=== PATIENT | male | born 1995 | race Caucasian/White ===

== ENCOUNTER 2024-03-09 13:41 | Emergency (ER) | payer BC, SELFPAY ==
[2024-03-09 13:44] VITALS: BP 121/73; BMI 45.1
[2024-03-09 14:00] LABS: Urine Albumin Negative (Neg - Trace); Urine Bilirubin Negative (Negative); Urine Character Clear (Clear); Urine Color Yellow; Urine Glucose Negative (Negative); Urine Ketone Negative (Negative); Urine Leukocyte Negative (Negative); Urine Nitrite Negative (Negative); Urine Occult Blood Negative (Negative); Urine Urobilinogen Negative (Neg - 1+)
[2024-03-09 15:59] VITALS: BP 134/74
[2024-03-09 16:04] LABS: % Basophils 0.4 % (0-2); % Eosinophils 2.6 % (0-6); % Immature Granulocytes 0.4 % (0-0.5); % Lymphocytes 21.2 % (20.5-51.1); % Monocytes 12.8 % (1.7-9.3); % Neutrophils 62.6 % (42.2-75.2); Absolute Eosinophils 0.1 10^3/uL (0-0.7); Absolute Lymphocytes 0.6 10^3/uL (1.2-3.4); Absolute Monocytes 0.4 10^3/uL (0.1-0.6); Absolute Neutrophils 1.7 10^3/uL (1.4-6.5); Hematocrit 40.2 % (39.0-52.0); Hemoglobin 14.4 g/dL (13.0-18.0); Mean Corp Hgb Conc. 35.8 g/dL (33.0-37.0); Mean Corpuscular Hgb 30.3 pg (27.0-31.0); Mean Corpuscular Volume 84.5 fL (80.0-94.0); Mean Platelet Volume 9.4 fL (7.4-10.4); Nucleated Red Blood Cells % 0 % (-); Platelet Count 168 10^3/uL (130-400); Red Blood Cell Count 4.76 10^6/uL (4.70-6.10); Red Cell Dist. Width 12.2 % (11.5-14.5); White Blood Cell Count 2.7 10^3/uL (4.8-10.8)
[2024-03-09] MEDS: NSS 1000 IV (16:24)
[2024-03-09 16:43] LABS: ALT (SGPT) 64 U/L (0-50); AST (SGOT) 37 U/L (17-59); Albumin 4.3 g/dl (3.5-5.0); Alkaline Phosphatase 66 U/L (38-126); Blood Urea Nitrogen 13 mg/dl (9-20); Calcium 9.1 mg/dl (8.4-10.2); Carbon Dioxide 27 mmol/L (22-30); Chloride 103 mmol/L (98-107); Estimated Creatinine Clearance > 125 ml/min; Glucose 89 mg/dl (70-99); Lipase 46 U/L (23-300); Potassium 4.5 mmol/L (3.5-5.1); Sodium 137 mmol/L (135-145); Total Bilirubin 0.5 mg/dl (0.2-1.3); Total Protein 6.6 g/dl (6.3-8.2); eGFR > 60.00
--- NOTE | 2024-03-09 16:51 | ED.GENMED ---
History of Present Illness
General
Chief Complaint: Dehydration Symptoms
Time Seen by Provider: 03/09/24 15:59
History of Present Illness
History of Present Illness:
28-year-old male without significant past medical history presenting for concern of dehydration. Patient reports that he works in [employer], which is very hot. For the past few days he has had difficulty regulating his temperature and has been
very exhausted. He is concerned for heat exhaustion. He has been urinating a lot, has been trying to drink a lot of fluids. Denies chest pain or difficulty breathing. His urine has been clear. Denies abdominal pain or GI symptoms. Denies
fever. Denies any muscle aches. Denies weakness or numbness to extremities. Denies additional acute medical complaints
Phy Exam
Physical Exam
Physical Exam:
General: Well-appearing, no clinical signs of dehydration, nontoxic and in no acute distress
HEENT: protecting airway
Neck: appears supple
CV: Normal heart rate, regular rhythm, no evidence of cyanosis
Resp: No accessory muscle use, no increased work of breathing, lungs clear to auscultation bilaterally
Abd: Soft and non-distended, no tenderness to palpation, normal bowel sounds
Extremities: No deformities, no swelling, no erythema
Neuro: alert, no focal neurologic deficit
: deferred
Rectal: deferred
Psych: Normal affect
Skin: Intact
Course
Orders/Labs/Results
Orders:
Orders
03/09/24 13:54
Urinalysis Reflex To Culture Urgent
Date Specimen was Collected: 03/09/24
Time Specimen was Collected: 13:47
03/09/24 15:57
Complete Blood Count/With Diff Urgent
Comprehensive Metabolic Panel Urgent
Lipase Urgent
03/09/24 16:19
Add On- LAB Urgent
Tests Added?: CK level
0.9% Sodium Chloride 1000 ml [Nss] 1,000 ml IV BOLUS
Abnormal Lab Results
03/09/24
15:57
WBC 2.7 L 10^3/uL
(4.8-10.8)
Absolute Lymphs (auto) 0.6 L 10^3/uL
(1.2-3.4)
Monocytes % 12.8 H %
(1.7-9.3)
ALT 64 H U/L
(0-50)
03/09/24 15:57
03/09/24 15:57
Vital Signs
Initial and Last Documented VS:
Initial Vital Signs
Temp Pulse Resp BP Pulse Ox
99.1 F 92 16 121/73 98
03/09/24 13:44 03/09/24 13:44 03/09/24 13:44 03/09/24 13:44 03/09/24 13:44
Last Documented Vital Signs
Temp Pulse Resp BP Pulse Ox
99.1 F 93 16 134/74 97
03/09/24 13:44 03/09/24 15:59 03/09/24 15:59 03/09/24 15:59 03/09/24 15:59
MDM/Problems Addressed
MDM/Problems Addressed:
28-year-old male without significant past medical history presenting for concern of dehydration from heat exposure. Vital signs within normal limits.
On exam, patient is well-appearing, no acute distress or discomfort. No clinical signs of dehydration. Patient with moist mucous membranes, no tachycardia. Suspect mild symptoms from environmental exposure to heat. Benign cardiac, pulmonary,
abdominal exam. Will screen with laboratory analysis and treat patient with IV fluids.
18:30 - Labs unremarkable, no ketones in the urine. Normal renal function. At this time feel patient is stable for discharge. Will provide work note. Otherwise advised continued oral hydration. Return precautions discussed and patient verbalized
understanding
*Critical Care Note
Total Time (30-74mins, 75-104mins- exclusive of procedures): Not Applicable
ED Attending Note
-
Portions of this chart may have been created with voice recognition software.� Occasional wrong word or��sound alike� substitutions may have occurred due to the inherent limitations of voice recognition software.
Discharge Plan
Departure
Prescriptions:
No Action
No Current Medications
0
Referrals:
Arcadio Ackerman I., DO [Family Provider] -
Interventions
Interventions:
*Risk Screen - Suicide Last Done: 03/09/24 13:44
*General Assessment Last Done: 03/09/24 15:59
*Neglect/Abuse Screening Last Done: 03/09/24 13:44
ED- Fall Risk Assessment Last Done: 03/09/24 16:43
*ED COVID-19 Vaccine History Last Done: 03/09/24 15:59
ED- Cardiac Assessment Last Done: 03/09/24 16:02
ED- Neurological Assessment Last Done: 03/09/24 15:59
ED- Pulmonary Assessment Last Done: 03/09/24 15:59
Discharge Date and Time
Print Language: LAO
[2024-03-09 18:29] VITALS: BP 160/84
== END 2024-03-09 18:36 | disposition home or self-care (01) ==
LOC: EMR 13:41
PROVIDERS: Student in an Organized Health Care Education/Training Program; EMERGENCY PHYSICIAN Student in an Organized Health Care Education/Training Program; FAMILY PHYSICIAN Internal Medicine
DX: R53.83 Other fatigue (principal); X30.XXXA Exposure to excessive natural heat, initial encounter; Y93.89 Activity, other specified; Y92.89 Other specified places as the place of occurrence of the external cause; Y99.0 Civilian activity done for income or pay
CPT/HCPCS: 99283; 80053; 81003; 83690; 85025